=== PATIENT | female | born 2000 | race Caucasian/White ===

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

== ENCOUNTER → 2020-05-29 16:07 | Outpatient (BNVA) | payer BC, SELFPAY | PROVIDERS: Family Provider Nurse Practitioner Family; PCP Nurse Practitioner Family; Visit Provider Nurse Practitioner Family | DX: R50.9 Fever, unspecified (principal); R05 Cough; J06.9 Acute upper respiratory infection, unspecified; Z20.822 Contact with and (suspected) exposure to COVID-19 | CPT/HCPCS: 87635 ==

== ENCOUNTER 2020-11-14 10:52 | Emergency (ER) | payer BC, MEDICAID, SELFPAY ==
[2020-11-14 10:57] VITALS: BP 121/80; PULSE 61; RESP 15; TEMP 36.7; O2SAT 100; BMI 27.4
--- NOTE | 2020-11-14 11:05 | ECG_ITS ---
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 Measurements Intervals [place] Rate: 52 P: 48 VT: 170 QRS: 56 QRSD: 87 T: 49 QT: 435 QTc: 408 Interpretive Statements SINUS BRADYCARDIA WITH SINUS ARRHYTHMIA POSSIBLE RIGHT VENTRICULAR CONDUCTION DELAY [RSR (QR) IN V1/V2] No previous ECG available for comparison Electronically Signed On 11-14-2020 19:36:32 CDT by Concetta Marrero M.D. [email or web address]
[2020-11-14 11:27] VITALS: BP 108/75; PULSE 61; RESP 14; O2SAT 100
--- NOTE | 2020-11-14 11:43 | W.ED.GENADLT ---
HPI - General Adult General: Chief complaint: Syncope Stated complaint: EPIGASTIC PAIN/ SYNCOPAL EPISODE Time Seen by Provider: 11/14/20 11:03 History of Present Illness: HPI narrative: HPI: [20]yo patient w/ no PMH BIBA after an episode of syncope lasting for 30 seconds. Patient was drinking a dr pepper outside when this happened. Patient experienced sharp chest pain briefly, diaphoresis, narrowing of vision. The incident was witnessed by the patient?s friends who reported diffuse shaking x 30 minutes. Patient could not recall the incident but reported that she was slow to return baseline. Denies tongue biting or bladder/bowel incontinence. Patient denies any prior hx of syncope in the past. No prior hx of seizures in the past. No associated symptoms of chest pain, shortness of breath, palpitations or focal weakness right before the incident. No family hx of sudden cardiac or unexplained . Onset: 30 minutes ago Duration: ongoing Location: home Severity: moderate Review of Systems Narrative: Constitutional: No fever, no chills. HEENT: No vision changes CV: No chest pain, no palpitations PULM: No productive cough, no dyspnea. GI: No abdominal pain, no N/V/D. : No Dysuria MSKEL: No muscle pain SKIN: No new rashes, no lesions. NEURO: No headache, no focal weakness. +syncope x 1 episode HEME: No visible bruises PSYCH: Normal mood PFSH ED PFSH: Medical History (Updated 11/14/20 @ 11:57 by Dorothy Roman MD) Asthma Surgical History No history of previous surgery Family History Sister Hypertension Mother Hypertension Heart disease Thyroid disease Breast cancer Pt unsure of age of diagnosis Lupus (systemic lupus erythematosus) Social History Smoking and tobacco status: current every day smoker cigarettes [ Other cigarette details: 2-5 cigarrettes daily, down from 1 pack daily. Started smoking at age 14. ] Second hand smoke exposure: No Alcohol intake: never Lives independently: Yes Household members: spouse Marital status: Current occupational status: previously employed History of recent travel: No Current gender identity: Female Additional social history: Well balanced diet Physical Exam Narrative: EXAM NARRATIVE: Head: Atraumatic Eyes: PERRL, conjunctiva without injection, eyes tracking ENT: Mucous membrane moist NECK: Supple without lymphadenopathy LUNGS: LCTAB CV: RRR ABDOMEN: Soft, nontender in all quadrants, no guarding or rebound tenderness, no CVA or flank tenderness bilaterally EXTREMITY: Normal ROM SKIN: No rash or erythema NEURO: Mental status: A/Ox3 CN II-XII tested and intact. Sensation intact to sharp/dull differentiation in all extremities. Motor: Normal tone and bulk. No abnormal movements appreciated. No pronator drift. Strength tested and 5/5 in bilateral wrist flexion/extension, elbow flexion/extension, shoulder abduction, straight leg raise, knee flexion/extension, ankle dorsiflexion/plantarflexion. Patient ambulates with a steady gait. Coordination: Finger to nose and heel to burt testing intact bilaterally. PSYCH: Cooperative mood and affect Course Vital Signs: Vital signs: Vital Signs Temperature 98.0 F 11/14/20 10:57 Pulse Rate 63 11/14/20 13:08 Respiratory Rate 14 11/14/20 13:08 Blood Pressure 111/66 11/14/20 13:08 Pulse Oximetry 100 11/14/20 13:08 MDM - General Adult MDM Narrative: Medical decision making narrative: [20]yo patient w/ hx of smoking presenting to the ED with Syncope. No association with chest pain, dyspnea, palpitations, or focal neurological deficits. HDS Neuro intact. Fingerstick wnl. Given history, exam and workup, presentation not consistent with seizures given a short time course, no postictal state, no seizure activity. Low suspicion for acute neurologic catastrophes to include ICH given lack of trauma, risk factors for bleeding diathesis, or neurogenic causes of syncope. Low suspicion for vascular catastrophes to include PE, thoracic aortic dissection, AAA rupture. Presentation not consistent with acute life threatening arrhythmia, structural heart disease, electrical conduction abnormalities, or ACS. Workup: EKG, fingerstick, orthostatics, and if female, telemetry, reassessment, and PO challenge, urine Intervention: Serial reevaluation, telemetry, PO challenge Findings: troponin, dimer, and lab workup wnl. UA is consistent with UTI, but patient is clinically without symptoms -- will not treat today. EKG showing regular sinus rhythm at HT of [52]. Normal axis. No ST elevations/depressions to suggest coronary occlusion. Normal RI, QRS, QT intervals. EKG: No e/o STEMI. No evidence of Brugada?s sign, delta wave, epsilon wave, significantly prolonged QTc, HOCM or malignant arrhythmia. SF Syncope Rule: 0 Foard Syncope Risk Score: 0 [11:54] On reassessment, patient denies any syncope or near syncope episodes in the ER. Telemetry without any dysrhythmia. Patient has been able to tolerate PO and ambulate in the ER without issues. Given age, limited to no comorbidities, no family hx of SCD, history more consistent with situational/reflex syncope vs orthostatic/decreased fluid intake, patient is unlikely to experience sudden cardiac decompensation at this time and will NOT benefit from inpatient observation/telemetry at this time. Although the incidence of paroxysmal ventricular tachycardia/VF is very unlikely, I instructed the patient to follow up with a PCP for further evaluation of syncope should the patient need it. Although this is unlikely to be a seizure epsiode, patient reported some confusion before returning to baseline. If patient is concerned that this is a seizure, I have given patient follow up with a neurologist. I have given patient follow up with our case investigator to be seen by our outpatient Neurologist Dr. Suarez. Patient aware of a call from our case investigator to schedule for appointment(s) and verbalizes understanding of the importance of following up. Disposition: Discharge. Patient is at baseline at this time. Return precautions expressed and understood in person. Advised follow up with a primary care provider or clinic physician in the next 24-48 hours. Given return instructions for any new or concerning symptoms including chest pain, focal neurological deficits, dyspnea, or any new or concerning findings. Lab Data: Labs: Lab Results 11/14/20 11/14/20 11/14/20 11:25 11:25 11:25 WBC 7.4 10^3/uL 10^3/ uL (4.5-13.0) RBC 4.32 10^6/uL 10^6 /uL (4.1-5.3) Hgb 13.0 g/dL g/dL (11.5-15.3) Hct 39.1 % % (37.0-47.0) MCV 90.5 fl fl (81-99) MCH 30.1 pg pg (28.0-34.0) MCHC 33.2 g/dL g/dL (30.0-36.0) RDW 11.9 % L % (12.1-15.1) Plt Count 234 10^3/cmm 10^3 /cmm (130-400) MPV 10.2 fL fL (7.4-10.4) Neut % (Auto) 48.8 % % Lymph % (Auto) 36.5 % % [place] % (Auto) 6.9 % % Eos % (Auto) 6.8 % % Baso % (Auto) 0.7 % % Neut # (Auto) 3.62 10^3/uL 10^3 /uL (1.8-8.0) Lymph # (Auto) 2.7 10^3/uL 10^3/ uL (1.5-6.5) [place] # (Auto) 0.5 10^3/uL 10^3/ uL (0.2-0.9) Eos # (Auto) 0.5 10^3/uL 10^3/ uL (0.0-0.8) Baso # (Auto) 0.1 10^3/uL 10^3/ uL (0.0-0.1) Nucleated RBC % (a uto) 0 % % Nucleated RBCs # 0.0 /100WBC /100W BC D-Dimer Sodium 138 mmol/L mmol/L (136-145) Potassium 4.0 mmol/L mmol/L (3.5-5.1) Chloride 105 mmol/L mmol/L (98-107) Carbon Dioxide 23 mmol/L mmol/L (22-29) Anion Gap 14.0 (5-19) BUN 15 mg/dL mg/dL (6-20) Creatinine 0.4 mg/dL L mg/dL (0.5-0.9) GFR Calculation 203.5 mL/min H mL /min (90-130) Glucose 81 mg/dL mg/dL (65-115) Calculated Osmolal ity 286 mOsm/kg mOsm/ kg (285-295) Calcium 9.1 mg/dL mg/dL (8.5-10.5) Total Bilirubin 0.4 mg/dL mg/dL (0.15-1.2) AST 12 U/L U/L (0-32) ALT 7 U/L U/L (0-33) Alkaline Phosphata se 77 IU/L IU/L (35-105) Troponin T Gen 5 n g/L 6 ng/L ng/L (0-10) Total Protein 7.2 g/dL g/dL (6.6-8.7) Albumin 4.4 g/dL g/dL (3.5-5.2) Globulin 2.8 g/dL g/dL (1.3-4.6) Lipase 13 U/L U/L (13-60) Ser , Tad i-Qnt 0.50 mIU/mL mIU/m L Urine Color Urine Appearance Urine pH Ur Specific Gravit y Urine Protein Urine Glucose (UA) Urine Ketones Urine Blood Urine Nitrate Urine Bilirubin Urine Urobilinogen Ur Leukocyte Cherelle ase Urine RBC Urine WBC Ur Squamous Epith Cells Amorphous Sediment Urine Bacteria 11/14/20 11/14/20 11:48 12:32 WBC RBC Hgb Hct MCV MCH MCHC RDW Plt Count MPV Neut % (Auto) Lymph % (Auto) [place] % (Auto) Eos % (Auto) Baso % (Auto) Neut # (Auto) Lymph # (Auto) [place] # (Auto) Eos # (Auto) Baso # (Auto) Nucleated RBC % (a uto) Nucleated RBCs # D-Dimer 0.39 ug/mIFEU ug/ mIFEU (0-0.59) Sodium Potassium Chloride Carbon Dioxide Anion Gap BUN Creatinine GFR Calculation Glucose Calculated Osmolal ity Calcium Total Bilirubin AST ALT Alkaline Phosphata se Troponin T Gen 5 n g/L Total Protein Albumin Globulin Lipase Ser , Tad i-Qnt Urine Color Yellow (Yellow) Urine Appearance Cloudy (CLEAR) Urine pH 5 (5-7) Ur Specific Gravit y 1.025 (1.005-1.030) Urine Protein Neg (Negative) Urine Glucose (UA) Norm (Normal) Urine Ketones Negative (Negative) Urine Blood 3+ H (Negative) Urine Nitrate Positive H (Negative) Urine Bilirubin Neg (Negative) Urine Urobilinogen Norm mg/dL mg/dL (Negative) Ur Leukocyte Cherelle ase 2+ H (Negative) Urine RBC 5-10 /hpf H /hpf (0-2) Urine WBC >100 /hpf H /hpf (0-5) Ur Squamous Epith Cells 0-4 /hpf H /hpf (0-5) Amorphous Sediment Not Reportable Urine Bacteria 4+ /hpf H /hpf (NONE) Discharge Plan Discharge Patient Disposition: Home Clinical Impression: Syncope Condition: Stable Prescriptions: No Action albuterol sulfate [ProAir HFA] 90 mcg/actuation HFA aerosol inhaler 2 puff INHALATION QID Qty: 18 RF: 0 Mirena 20 mcg/24 hours (5 yrs) 52 mg intrauterine device 1 device INTRAUTERI .continuous RF: 0 Discharge Orders: Discharge ED (Routine); Ordered 11/14/20 Ordered By: Dorothy Roman Referrals: Lolita Sheffield FNP [Primary Care Provider] - Discharge Diet: Advance as tolerated Discharge Activity: Resume usual activity Patient Instructions: Syncope (ED) Activity Restrictions/Additional Instructions: Our case investigator will have you follow-up with a Neurologist in the next few days to determine whether this ia seizure epside. You would be expected to have a phone call with our case investigator who will put you on the schedule. Come back to the emergency room you have any worsening chest pain, shortness of breath, lightheadedness, and other episodes of passing out. Do not operate a vehicle, swim, or bath by yourself unless cleared by a primary care doctor just for your safety. Coding Level of Care Code ED Quality Control Operator for [place]
[2020-11-14 11:50] LABS: Basophils # 0.1 10^3/uL (0.0-0.1); Basophils % 0.7 %; Eosinophils # 0.5 10^3/uL (0.0-0.8); Eosinophils % 6.8 %; Hematocrit 39.1 % (37.0-47.0); Lymphocytes # 2.7 10^3/uL (1.5-6.5); Lymphocytes % 36.5 %; Mean Corpuscular HGB Conc 33.2 g/dL (30.0-36.0); Mean Corpuscular Hemoglobin 30.1 pg (28.0-34.0); Mean Corpuscular Volume 90.5 fl (81-99); Mean Platelet Volume 10.2 fL (7.4-10.4); Monocytes # 0.5 10^3/uL (0.2-0.9); Monocytes % 6.9 %; Neutrophils # 3.62 10^3/uL (1.8-8.0); Neutrophils % 48.8 %; Nucleated Red Blood Cells % 0 %; Platelet Count 234 10^3/cmm (130-400); Red Blood Count 4.32 10^6/uL (4.1-5.3); Red Cell Distribution Width 11.9 % (12.1-15.1); White Blood Count 7.4 10^3/uL (4.5-13.0)
[2020-11-14 12:10] LABS: Troponin T (5th) Once 6 ng/L (0-10)
[2020-11-14] MEDS: sodium chloride 0.9% 1,000 ML 999 ML IV (12:13)
[2020-11-14 12:17] LABS: Alanine Aminotransferase 7 U/L (0-33); Albumin Level 4.4 g/dL (3.5-5.2); Alkaline Phosphatase 77 IU/L (35-105); Aspartate Amino Transferase 12 U/L (0-32); Blood Urea Nitrogen 15 mg/dL (6-20); Calcium 9.1 mg/dL (8.5-10.5); Carbon Dioxide 23 mmol/L (22-29); Chloride 105 mmol/L (98-107); Globulin 2.8 g/dL (1.3-4.6); Glomerular Filtration Rate 203.5 mL/min (90-130); Glucose 81 mg/dL (65-115); Lipase 13 U/L (13-60); Osmolality Calculated 286 mOsm/kg (285-295); Sodium 138 mmol/L (136-145); Total Bilirubin 0.4 mg/dL (0.15-1.2); Total Protein 7.2 g/dL (6.6-8.7)
--- NOTE | 2020-11-14 12:21 | PC.NURSE ---
Cardiac monitoring initiated
[2020-11-14 12:33] LABS: Urine Appearance Cloudy (CLEAR); Urine Color Yellow (Yellow)
[2020-11-14 12:34] LABS: Add Urine Microscopic? YES; Bilirubin Urine Neg (Negative); Blood Urine 3+ (Negative); Glucose Urine UA Norm (Normal); Ketones Urine Negative (Negative); Leukocyte Esterase Urine 2+ (Negative); Nitrate Urine Positive (Negative); Protein Urine Neg (Negative); Specific Gravity, Urine 1.025 (1.005-1.030); Urobilinogen Urine Norm (Negative); pH Urine 5 (5-7)
[2020-11-14 12:40] LABS: Add Urine Culture? Yes; Bacteria Urine 4+ /hpf; Squamous Epithelial Cell Urine 0-4 /hpf (0-5); WBC Urine >100 /hpf (0-5)
[2020-11-14 12:51] LABS: D Dimer 0.39 ug/mIFEU (0-0.59)
[2020-11-14 13:08] VITALS: BP 111/66; PULSE 63; RESP 14; O2SAT 100
--- NOTE | 2020-11-14 15:06 | DCPLANNER ---
livestock nutrition territory manager had message to schedule a follow up appointment for patient with Dr. Suarez. livestock nutrition territory manager emailed patients information to the office of Dr. Anglin. livestock nutrition territory manager was told that patients information would be printed and reviewed. Clinic will call patient with appointment information.
--- NOTE | 2020-11-27 15:30 | DCPLANNER ---
Patient had a follow up appointment scheduled for 11.21.[address] Suarez - patient did attend appointment.
== END 2020-11-14 13:10 | disposition home or self-care (01) ==
PROVIDERS: Emergency Provider Emergency Medicine; PCP Nurse Practitioner Family
DX: R55 Syncope and collapse (principal); F17.210 Nicotine dependence, cigarettes, uncomplicated
CPT/HCPCS: 36415; 80053; 81001; 83690; 84484; 84702; 85025; 85378; 87077; 87086; 87186; 93005; 96360; 99283; J7030

== ENCOUNTER → 2020-11-21 14:25 | Outpatient (BNVA) | payer BC, MEDICAID, SELFPAY | PROVIDERS: PCP Nurse Practitioner Family; Visit Provider Nurse Practitioner | DX: R55 Syncope and collapse (principal); F17.210 Nicotine dependence, cigarettes, uncomplicated | CPT/HCPCS: 99203 ==

== ENCOUNTER → 2021-04-10 13:41 | Outpatient (BNVA) | payer BC, MEDICAID, SELFPAY | PROVIDERS: PCP Nurse Practitioner Family; Visit Provider Nurse Practitioner Family | DX: M25.561 Pain in right knee (principal); M25.461 Effusion, right knee | CPT/HCPCS: 73562 ==

== ENCOUNTER 2021-05-27 07:16 | Outpatient (CLI) | payer BC, MEDICAID, SELFPAY ==
--- NOTE | 2021-05-27 08:00 | MR_ITS ---
WS: [id number] MRI RIGHT KNEE HISTORY: M25.561 - Pain in right knee COMPARISON: Radiograph 04/10/2021 Anterior cruciate ligament: Increased T2 striations throughout the ACL. No full-thickness tear identi fied. Posterior cruciate ligament: Intact. Medial collateral ligament: Intact. Posterior lateral corner structures: Intact. Medial menisci: Intact. Normal signal, size and shape. Lateral meniscus: Intact. Normal signal, size and shape. Extensor mechanism: Distal quadriceps tendon and patellar tendons are intact. Fluid and soft tissue: There is a very small joint effusion. No Valentino's cyst. Osseous and articular structures: Patellofemoral compartment: There is a small amount of marrow edema involving the medial patella. At the site of the medial patellar retinaculum attachment to the patella there is increased T2 signal an d loss of the normal bony cortex consistent with a small impaction type fracture. There is also incre ased fluid in the patellar retinaculum. Medial compartment: Fissuring of the cartilage along the weightbearing surface of the femoral condyle and tibial plateau. There is a full thickness cartilage defect containing fluid signal along the med ial femoral condyle towards the intercondylar notch. This is a very short cartilage defect measuring about 3 mm. No marrow edema. Lateral compartment: No narrowing of the lateral compartment. The cartilage is intact. There is incre ased T2 signal consistent with marrow edema involving the lateral femoral condyle. No fracture. MR/MR knee RT wo con* [id number] IMPRESSION: 1. Pattern of marrow edema in the medial patella and lateral femoral condyle s uggests transient dislocation of the patella. 2. There is a partial tear of the medial patellar retinaculum as it attaches t o the patella along with a small cortical impaction fracture involving the portillo lla. 3. No meniscal tear. 4. Very small suprapatellar joint effusion. 5. Mild chondromalacia involving the cartilage in the medial compartment with a single 3 mm full-thickness tear in the medial femoral condyle.
== END 2021-05-27 07:17 | disposition home or self-care (01) ==
LOC: RAD 07:18
PROVIDERS: PCP Nurse Practitioner Family; Visit Provider Nurse Practitioner Family
DX: R60.0 Localized edema (principal); M25.461 Effusion, right knee; M22.41 Chondromalacia patellae, right knee
CPT/HCPCS: 73721

== ENCOUNTER → 2022-01-22 12:54 | Outpatient (BNVA) | payer BC, MEDICAID, SELFPAY | PROVIDERS: PCP Nurse Practitioner Family; Visit Provider Nurse Practitioner Family | DX: R50.9 Fever, unspecified (principal) | CPT/HCPCS: 87071; 87400; 87880 ==

== ENCOUNTER → 2022-10-14 09:42 | Outpatient (BNVA) | payer MEDICAID, SELFPAY | PROVIDERS: PCP Nurse Practitioner Family; Visit Provider Nurse Practitioner Women's Health | DX: Z34.90 Encounter for supervision of normal pregnancy, unspecified, unspecified trimester (principal) | CPT/HCPCS: 81000 ==

== ENCOUNTER → 2022-10-21 14:29 | Outpatient (BNVA) | payer MEDICAID, SELFPAY | PROVIDERS: PCP Nurse Practitioner Family; Visit Provider Nurse Practitioner Women's Health | DX: O20.9 Hemorrhage in early pregnancy, unspecified (principal); Z3A.01 Less than 8 weeks gestation of pregnancy | CPT/HCPCS: 76817 ==

== ENCOUNTER → 2022-10-27 09:53 | Outpatient (BNVA) | payer SELFPAY | PROVIDERS: PCP Nurse Practitioner Family; Visit Provider Obstetrics & Gynecology | DX: Z34.90 Encounter for supervision of normal pregnancy, unspecified, unspecified trimester (principal) | CPT/HCPCS: 81000 ==

== ENCOUNTER → 2023-01-03 09:00 | Outpatient (BNVA) | payer BC, MEDICAID, SELFPAY | PROVIDERS: PCP Nurse Practitioner Family; Visit Provider Nurse Practitioner Women's Health | DX: Z34.80 Encounter for supervision of other normal pregnancy, unspecified trimester (principal); Z34.90 Encounter for supervision of normal pregnancy, unspecified, unspecified trimester | CPT/HCPCS: 80307; 81000; 84443; 85025; 86592; 86762; 86803; 86850; 86900; 87086; 87340; 87491; 87591; 87806 ==

== ENCOUNTER → 2023-02-01 09:08 | Outpatient (BNVA) | payer BC, MEDICAID, SELFPAY | PROVIDERS: PCP Nurse Practitioner Family; Visit Provider Obstetrics & Gynecology | DX: Z34.80 Encounter for supervision of other normal pregnancy, unspecified trimester (principal) | CPT/HCPCS: 76805; 81000 ==

== ENCOUNTER → 2023-03-02 11:17 | Outpatient (BNVA) | payer BC, MEDICAID, SELFPAY | PROVIDERS: PCP Nurse Practitioner Family; Visit Provider Nurse Practitioner Women's Health | DX: Z34.90 Encounter for supervision of normal pregnancy, unspecified, unspecified trimester (principal) | CPT/HCPCS: 81000 ==

== ENCOUNTER → 2023-03-28 10:04 | Outpatient (BNVA) | payer BC, MEDICAID, SELFPAY | PROVIDERS: PCP Nurse Practitioner Family; Visit Provider Obstetrics & Gynecology | DX: Z34.80 Encounter for supervision of other normal pregnancy, unspecified trimester (principal) | CPT/HCPCS: 82950; 84315 ==

== ENCOUNTER → 2023-04-14 10:58 | Outpatient (BNVA) | payer BC, MEDICAID, SELFPAY | PROVIDERS: PCP Nurse Practitioner Family; Visit Provider Obstetrics & Gynecology | DX: Z34.80 Encounter for supervision of other normal pregnancy, unspecified trimester (principal) | CPT/HCPCS: 76816 ==

== ENCOUNTER 2023-04-20 17:26 | Outpatient (CLI) | payer BC, MEDICAID, SELFPAY ==
[2023-04-20] VITALS (11 sets, daily range): BP systolic 105–129; BP diastolic 57–77; PULSE 80–110; RESP 17; BMI 33.3
--- NOTE | 2023-04-20 17:57 | USR_ITS ---
PROCEDURE INFORMATION: Exam: US Biophysical Profile Without Non-Stress Test Exam date and time: 04/20/2023 7:17 PM Age: 23 years old Clinical indication: Other: Vaginal bleeding, check placment of placenta/ abrubition; ; Patient HX: G3-p2-a0-l2 with light spotting x 1 hr. TECHNIQUE: Imaging protocol: US biophysical profile without non-stress testing. COMPARISON: [place] [id number] 04/14/2023 11:03 AM FINDINGS: heart rate: 155 bpm presentation: Cephalic Placenta: Posterior grade 1 placenta without previa. Amniotic fluid: Amniotic fluid volume is normal. Amniotic fluid index: TANA is 14.91 cm. BIOPHYSICAL PROFILE: breathing movement (BPP): 2 /2 body movement (BPP): 2 /2 tone (BPP): 2 /2 Amniotic fluid (BPP): 2 /2 Biophysical profile score (BPP): 8 /8 MATERNAL ANATOMY: Cervix: Cervical length measures 3.5 cm. US/US OB BPP wo NST [id number] IMPRESSION: Biophysical profile score normal at 8/8.
[2023-04-20] MEDS: NIFEdipine 10 mg Capsule 30 MG PO (18:18)
[2023-04-20 19:21] LABS: Specific Gravity, Urine 1.015 (1.005-1.030); Urine Appearance Clear (CLEAR); Urine Color Yellow (Yellow); pH Urine 6.5 (5-7)
[2023-04-20 19:22] LABS: Bilirubin Urine Neg (Negative); Blood Urine 3+ (Negative); Glucose Urine UA Norm (Normal); Ketones Urine Negative (Negative); Leukocyte Esterase Urine Negative (Negative); Nitrate Urine Negative (Negative); Protein Urine Neg (Negative); Urobilinogen Urine Norm (Negative)
[2023-04-20 19:30] LABS: Add Urine Culture? No; Bacteria Urine TRACE /hpf; RBC Urine 0-4 /hpf (0-2); Squamous Epithelial Cell Urine 0-4 /hpf (0-5); WBC Urine 0-4 /hpf (0-5)
== END 2023-04-20 20:42 | disposition home or self-care (01) ==
LOC: OPOB 17:26 → OBGYN 17:32
PROVIDERS: PCP Nurse Practitioner Family; Visit Provider Obstetrics & Gynecology
DX: O46.90 Antepartum hemorrhage, unspecified, unspecified trimester (principal); Z3A.00 Weeks of gestation of pregnancy not specified; R10.9 Unspecified abdominal pain
CPT/HCPCS: 59025; 76819; 81001; 99211

== ENCOUNTER → 2023-04-25 15:42 | Outpatient (BNVA) | payer BC, MEDICAID, SELFPAY | PROVIDERS: PCP Nurse Practitioner Family; Visit Provider Obstetrics & Gynecology | DX: Z34.90 Encounter for supervision of normal pregnancy, unspecified, unspecified trimester (principal) | CPT/HCPCS: 81000 ==

== ENCOUNTER 2023-05-02 15:55 | Outpatient (CLI) | payer BC, MEDICAID, SELFPAY ==
[2023-05-02 15:55] VITALS: BMI 35.0
[2023-05-02 16:17] VITALS: BP 118/61; PULSE 90
[2023-05-02 16:22] VITALS: RESP 16
[2023-05-02 16:37] VITALS: BP 111/56; PULSE 86
== END 2023-05-02 16:41 | disposition home or self-care (01) ==
LOC: OPOB 15:59 → OBGYN 16:04
PROVIDERS: PCP Nurse Practitioner Family; Visit Provider Obstetrics & Gynecology
DX: O46.90 Antepartum hemorrhage, unspecified, unspecified trimester (principal); Z3A.00 Weeks of gestation of pregnancy not specified
CPT/HCPCS: 59025; 84315

== ENCOUNTER → 2023-05-23 11:30 | Outpatient (BNVA) | payer BC, MEDICAID, SELFPAY | PROVIDERS: PCP Nurse Practitioner Family; Visit Provider Obstetrics & Gynecology | DX: Z34.80 Encounter for supervision of other normal pregnancy, unspecified trimester (principal) | CPT/HCPCS: 84315; 87081 ==

== ENCOUNTER 2023-06-05 14:03 | Outpatient (CLI) | payer BC, MEDICAID, SELFPAY ==
[2023-06-05 14:21] VITALS: BP 129/76; PULSE 92
[2023-06-05 14:25] VITALS: BMI 36.8
[2023-06-05 14:30] LABS: Nitrazine Paper, PH Inconclusive
[2023-06-05 14:36] VITALS: BP 116/68; PULSE 92
[2023-06-05 14:36] LABS: Actim Prom Negative
[2023-06-05 15:18] VITALS: BP 116/68; PULSE 92
== END 2023-06-05 15:00 | disposition home or self-care (01) ==
LOC: OPOB 14:04 → OBGYN 14:05
PROVIDERS: PCP Nurse Practitioner Family; Visit Provider Obstetrics & Gynecology
DX: O26.899 Other specified pregnancy related conditions, unspecified trimester (principal); Z3A.00 Weeks of gestation of pregnancy not specified; R10.9 Unspecified abdominal pain
CPT/HCPCS: 59025; 83986; 84112; 99211

== ENCOUNTER 2023-06-13 19:28 | Inpatient (IN) | payer BC, MEDICAID, SELFPAY ==
[2023-06-13 19:30] VITALS: BMI 36.6
[2023-06-13 20:13] VITALS: BP 116/67; PULSE 80
[2023-06-13 20:35] VITALS: RESP 17
[2023-06-13 20:46] VITALS: BP 115/72; PULSE 74
--- NOTE | 2023-06-13 20:50 | PM.OBGYHP ---
Providers/Chief Complaint Admitting Physician: Jarad Ceja MD Primary GREEN FEED ATTENDANT: Jarad Ceja MD Primary Care Provider: MARICEL Baer Chief Complaint: INDUCTION OF LABOR HPI GREEN FEED ATTENDANT History of Present Illness 23 y.o EDC ? June 18, 2023 by 5-week sono At 39 w 2 d No complications Admitted for elective induction of labor Present Details : 4 Labs Rubella: Immune RPR: Negative GBS: Negative Specific History Indications for Section: Placental Abruption Medications/Allergies Home Medications Medication Instructions Recorded Confirmed Last Taken Type PNV 153-FA 400 mcg-om3 35 mg-dha 1 tab PO DAILY 11/10/22 06/13/23 06/12/23 History 25 mg-epa 5 mg-fish oil chew tablet ( Gummies) Allergies Allergy/AdvReac Type Severity Reaction Status Date / Time No Known Allergies Allergy Verified 06/13/23 20:35 PFSH GREEN FEED ATTENDANT PFSH: Medical History (Updated 06/14/23 @ 10:49 by Jarad Ceja MD) Asthma Surgical History No history of previous surgery Family History Sister Hypertension Mother Hypertension Heart disease Thyroid disease Breast cancer Pt unsure of age of diagnosis Lupus (systemic lupus erythematosus) Other Female Reproductive History: Hx Age of Menarche: 11 History History History 3 Term 2 0 Miscarriages/Ectopic 0 Living Children 2 Care CAREY Calculator Estimated Delivery Date Method Current WG Current Estimate 06/18/23 Ultrasound #1 39w 3d Vitals/I&O/Wt Last Vital Signs Pulse 74 06/14/23 10:40 Resp 16 06/14/23 10:20 BP 113/58 06/14/23 10:40 Pulse Ox 100 06/14/23 05:59 O2 Del Method Room Air 06/13/23 20:35 06/13/23 06/14/23 06/14/23 22:59 06:59 14:59 Intake Total 20.5 / 20.5 Output Total 500 / 500 Balance -479.5 / -479.5 Weight last 48 hrs Weight 207 lb Weight 207 lb Physical Exam Narrative: [id number]? lbs;? 5?4? VSnormal Comfortable Lungs:clear Cor:RRR Abd:nontender FH37 cm,? cephalic Cervix:1 cm / 50% / -2 / posterior Ext:no edema External monitor: heart tracing good variability, + accelerations Urinary Catheter Management: Ken Latex: Cath Placed During This Visit: yes Urinary Catheter Date of Insertion: 06/14/23 Urinary Catheter Time of Insertion: 04:51 Data 06/13/23 20:16 Results Labs OB ([facility]): Obstetrics US 04/14/23 Obstetrics US/Biophysical Profile 04/20/23 Blood Type A Positive 06/13/23 Antibody Screen Negative 06/13/23 Hct 35.4 % (36-47) L 06/13/23 Hgb 12.30 g/dL (11.27-16.99) 06/13/23 Rho(D) Type Rh positive 06/13/23 Plt Count 252 10^3/cmm (157-399) 06/13/23 Hep Bs Antigen Non-reactive (Nonreactive) 01/03/23 Hepatitis C Antibody Non-reactive (Nonreactive) 01/03/23 Rubella IgG Antibody 173.8 IU/mL (0.0-10.0) H 01/03/23 RPR Nonreactive (Nonreactive) 01/03/23 HIV 1&2 Ab & HIV 1 Ag Non-reactive (Non-Reactiv) 01/03/23 TSH 1.21 uIU/mL (0.27-4.20) 01/03/23 C.trachomatis RNA (TMA) Not detected (NOT DETECTED) 01/03/23 N.gonorrhoeae RNA (TMA) Not detected (NOT DETECTED) 01/03/23 Chlamydia/GC Comment See note 01/03/23 Gest Glucose Tolerance 73 mg/dL (70-139) 03/28/23 Ser , Semi-Qnt 0.50 mIU/mL 11/14/20 Urine Opiates Screen Negative ng/mL (Negative) 01/03/23 Ur Barbiturates Screen Negative ng/mL (Negative) 01/03/23 Ur Phencyclidine Scrn Negative ng/mL (Negative) 01/03/23 Ur Amphetamines Screen Negative ng/mL (Negative) 01/03/23 U Benzodiazepines Scrn Negative ng/mL (Negative) 01/03/23 Urine Cocaine Screen Negative ng/mL (Negative) 01/03/23 U Marijuana (THC) Screen Negative ng/mL (Negative) 01/03/23 Micro Urine Specimen 01/03/23 A&P Assessment and plan (1) Encounter for induction of labor: 39 w 2 d Fetus reassuring Admitted for induction of labor Plan Cytotec 25 ug intravaginal Attestations Medical Necessity Statement*: patient at 39 w 1 d, admitted for induction of labor Coding Level of Care Code Acute Code for Chg Fwd Diagnoses Encounter for induction of labor Z34.90 Time Spent (min) 30
[2023-06-13 21:02] LABS: Basophils # 0.1 10^3/uL (0.0-0.1); Basophils % 0.7 %; Eosinophils # 0.3 10^3/uL (0.0-0.8); Hematocrit 35.4 % (36-47); Lymphocytes # 3.4 10^3/uL (0.8-4.8); Lymphocytes % 25.1 %; Mean Corpuscular HGB Conc 34.7 g/dL (30-55); Mean Corpuscular Hemoglobin 30.8 pg (27-33); Mean Corpuscular Volume 88.5 fl (85-98); Mean Platelet Volume 9.9 fL (7.4-10.4); Monocytes # 0.7 10^3/uL (0.2-0.9); Monocytes % 5.5 %; Neutrophils # 8.77 10^3/uL (1.8-7.7); Neutrophils % 65.4 %; Nucleated Red Blood Cells % 0 %; Platelet Count 252 10^3/cmm (157-399); Red Cell Distribution Width 12.3 % (12.1-15.1); White Blood Count 13.39 10^3/uL (3.29-11.43)
[2023-06-13 21:14] VITALS: BP 121/66; PULSE 75
[2023-06-13 21:44] VITALS: BP 105/60; PULSE 76
[2023-06-13] MEDS: miSOPROStol 100 mcg tablet 25 MCG VAGINAL (21:56)
[2023-06-13 22:14] VITALS: BP 124/61; PULSE 82
[2023-06-14] VITALS (99 sets, daily range): BP systolic 91–137; BP diastolic 47–84; PULSE 62–129; RESP 16–17; TEMP 35.7–36.5; O2SAT 95–100; BMI 36.6
[2023-06-14] MEDS: oxytocin 30 UNIT/500 ML BAG IV (02:51)
[2023-06-14] MEDS: dextrose 5%-lactated ringers 1,000 ML 125 ML IV ×2 (02:51→11:15)
[2023-06-14] MEDS: lactated ringers 1,000 ML 999 ML IV ×2 (02:58→06:26)
[2023-06-14] MEDS: ROPivacaine syringe 100 MG/50 ML SYRINGE 10 MG EPIDURAL (04:22)
--- NOTE | 2023-06-14 04:25 | P.ANESASSM_ITS ---
Pre-Anesthetic Assessment Height/Weight: Height 1.6 m Weight 93.894 kg Pulse Resp BP Pulse Ox O2 Del Method 72 17 115/63 100 Room Air 06/14/23 04:22 06/13/23 20:35 06/14/23 04:22 06/14/23 04:19 06/13/23 20:35 Preop Diagnosis: IUP Labor Epidural Familial anesthetic complications: None Was Beta Glenna taken within 24 hours: N/A Was Clonidine taken within 24 hours: N/A Last intake: 0000 06/14/23 MEAL CLEARS- CURRENT Social Tobacco and No alcohol Exam alert, oriented x 3 and clear to auscultation bilaterally Airway Submandibular: within normal limits Cervical ROM: within normal limits Mallampati: Class II Dentition: full History/ROS No significant history except as noted Pulmonary Asthma (denies inhaler use) CV/HEM None reported None reported Hepatic None reported GI Gastroesophageal Reflux Disease Metabolic None reported Musc/skel None reported Neuropsych None reported Anesthetic Plan ASA status: 2 Anesthesia: Regional (specify below) Other: Labor Epidural Medications/Allergies Home Medications Medication Instructions Recorded Confirmed Last Taken Type PNV 153-FA 400 mcg-om3 35 mg-dha 1 tab PO DAILY 11/10/22 06/13/23 06/12/23 History 25 mg-epa 5 mg-fish oil chew tablet ( Gummies) Allergies Allergy/AdvReac Type Severity Reaction Status Date / Time No Known Allergies Allergy Verified 06/13/23 20:35 Current Medications Generic Name Dose Route Start Last Admin Trade Name Freq PRN Reason Stop Dose Admin Dextrose/Lactated Ringer's 1,000 mls @ 125 mls/hr 06/13/23 20:45 06/14/23 02:51 Dextrose 5%-Lactated Ringers IV 125 mls/hr .Q8H JATIN Administration Oxytocin 30 unit in 500 mls @ 1 mls/hr 06/14/23 02:15 06/14/23 03:21 Pitocin IV 0 milliunit/min .Q24H JATIN 0 mls/hr Titration Protocol 1 MILLIUNIT/MIN Lactated Ringer's 1,000 mls @ 999 mls/hr 06/14/23 02:53 06/14/23 02:58 Lactated Ringers IV 999 mls/hr .Q1H1M PRN Administration See label comments Ropivacaine 100 mg in 50 mls @ 10 mls/hr 06/14/23 03:00 06/14/23 04:22 Naropin Syringe EPIDURAL 10 mls/hr .Q5H JATIN Administration PFSH Anesthesia Medical History Asthma Surgical History No history of previous surgery Family History Sister Hypertension Mother Hypertension Heart disease Thyroid disease Breast cancer Pt unsure of age of diagnosis Lupus (systemic lupus erythematosus) Female Reproductive History : 4 Data Anesthesia 06/13/23 20:16 Short CBC 06/13/23 Range/Units 20:16 WBC 13.39 H (3.29-11.43) 10^3/uL Hgb 12.30 (11.27-16.99) g/dL Hct 35.4 L (36-47) % MCV 88.5 (85-98) fl Plt Count 252 (157-399) 10^3/cmm Neut % (Auto) 65.4 % Neut # (Auto) 8.77 H (1.8-7.7) 10^3/uL Blood Bank 06/13/23 20:16 Blood Type A Positive Rho(D) Type Rh positive Antibody Screen Negative Cardiac Studies: 2 No Data to Display Anesthesia Procedures Epidural Time Out Performed: Yes Consents Signed: Procedure Consent Consent: from patient, risks and benefits reviewed and patient agrees to proceed Lumbar Level: L3-L4 Epidural position: sitting Epidural procedure: sterile prep of area, 1% lidocaine to numb the area, negative for paresthesia passed, test dose given, 1.5% xylocaine 1:200k epi, placed PCEA, no systemic response, sterile dressing applied, L.U.D. no apparent complications and 0.2% Ropiavacaine @ mls/hr (10) Additional Comments: First attempt at L4-5 resulted in a CSF leak, needle removed and [employer] proceededto L3/4 JERROD @ 5.5cm , second attempt, - heme -csf. catheter threaded to 12cm with ease. Adequate analgesia achieved. Remaining Lidocaine and Saline in kit given.
--- NOTE | 2023-06-14 05:35 | PM.OBGYPN ---
NEUROPSYCHOLOGY DIVISION CHIEF Subjective Subjective: Interval history: heart tracing had inconsistent variable and late variable decelerations Cx:5 cm / 90 % / -2 / posterior Patient had spontaneous rupture of membranes IUPC and FSE placed Now with moderately heavy bright red vaginal bleeding with clots + repetitive late decelerations Cx remains at 5 cm Suspect placental abruption Will proceed with for delivery Procedure and risks explained to patient, including, but not limited to, infection;? bleeding; Injury to internal organs, such as bladder and bowel;? anesthesia;? blood Transfusions Patient understands and wants to proceed Labor: Station: -3 Amniotic Membrane Status: Ruptured Monitor Mode: External Contraction Pattern: Irregular Vitals/I&O/Wt Last Vital Signs Pulse 74 06/14/23 10:40 Resp 16 06/14/23 10:20 BP 113/58 06/14/23 10:40 Pulse Ox 100 06/14/23 05:59 O2 Del Method Room Air 06/13/23 20:35 06/13/23 06/14/23 06/14/23 22:59 06:59 14:59 Intake Total 20.5 / 20.5 Output Total 500 / 500 Balance -479.5 / -479.5 Weight last 48 hrs Weight 207 lb Weight 207 lb Physical Exam Urinary Catheter Management: Ken Latex: Cath Placed During This Visit: yes Urinary Catheter Date of Insertion: 06/14/23 Urinary Catheter Time of Insertion: 04:51 Data 06/13/23 20:16 A&P Assessment and plan (1) Encounter for induction of labor: see above note Attestations Medical Necessity Statement*: patient admitted for induction of labor, now with repetitive decelerations Coding Level of Care Code Acute Code for Chg Fwd Diagnoses Encounter for induction of labor Z34.90 Time Spent (min) 30
[2023-06-14] MEDS: famotidine 20 mg/2 mL INJ IVP (06:20)
[2023-06-14] MEDS: ceFAZolin 2,000 MG in sodium chloride 0.9% (plus) 50 ML 100 MG IV (06:32)
--- NOTE | 2023-06-14 07:55 | PM.OP ---
Operative Report Date of procedure: June 14, 2023 Pre-op diagnosis: 39 w 1 d induction of labor cervix at 5 cm heart tracing with repetitive late decelerations moderately heavy vaginal bleeding with clots Post-op diagnosis: 39 w 1 d induction of labor cervix at 5 cm heart tracing with repetitive late decelerations moderately heavy vaginal bleeding with clots placental abruption, approximately 30% fetus with tight nuchal cord x two Post-op findings: clear amniotic fluid placental abruption, approximately 30% fetus with tight nuchal cord x two normal uterus, tubes, and ovaries Procedure done: primary low-transverse Implants: none Specimens removed/disposition: placenta and cord, discarded cord gases and blood, sent to lab Surgeon: Jarad Ceja MD Anesthesia: Epidural Estimated blood loss (mL): 700 Complications: none Condition: stable Disposition: floor Brief History: 23 y.o.? At 39 w 1d admitted for induction of labor Cx at 5? cm heart tracing with repetitive late decelerations moderately heavy vaginal bleeding with clots Procedure: The patient was taken to the operating room and placed supine in the left lateral tilt position.? Epidural anesthesia and a mckeon catheter were already in place.? Time-out verification was carried out.? The abdomen was prepped and draped in the usual sterile fashion. A Pfannenstiel incision was made and carried down through skin and subcutaneous tissue and fascia.? The fascial incision was extended laterally with Mackenzie scissors.? The fascia was from the underlying rectus muscles.? The rectus muscles were split in the midline.? The peritoneum was entered bluntly avoiding underlying organs.? A bladder flap was created.? An Ilir-O retractor was placed. A low-transverse uterine incision was made and extended laterally and bluntly avoiding the uterine vessels.? Clear amniotic fluid was encountered.? The baby was delivered in cephalic presentation atraumatically.? Tight nuchal cord x two noted and reduced.? The baby was suctioned, the cord was clamped and cut and the baby was handed to pediatric staff.? A segment of cord was obtained for cord gas, cord blood was obtained.? The placenta was manually removed intact.? Approximately 30% abruption was noted.? The uterine cavity was bluntly curetted with wet laps.? The uterine incision was then closed with a continuous interlocking stitch of O-chromic.? Adequate hemostasis was seen. Inspection of the uterine incision again showed good hemostasis.? The fascia was then closed with a continuous stitch of O-Vicryl.? The subcutaneous tissue was irrigated and inspected for hemostasis.? The skin was then closed with Insorb marlin. Postoperative condition:? stable EBL: ? 700? cc Complications: ? none Sponge and instruments counts correct x two
[2023-06-14] MEDS: ketorolac 30 mg/mL INJ IVP ×2 (11:15→17:38)
--- NOTE | 2023-06-14 14:59 | PC.NURSE ---
Epidural catheter removed by Kristal Tripathi CRNA
[2023-06-14] MEDS: docusate sodium 100 mg Capsule PO (17:38)
[2023-06-14 20:08] LABS: Hematocrit 29.1 % (36-47); Mean Corpuscular HGB Conc 34.4 g/dL (30-55); Mean Corpuscular Hemoglobin 30.8 pg (27-33); Mean Corpuscular Volume 89.5 fl (85-98); Mean Platelet Volume 9.5 fL (7.4-10.4); Platelet Count 194 10^3/cmm (157-399); Red Blood Count 3.25 10^6/uL (3.85-5.65); Red Cell Distribution Width 12.5 % (12.1-15.1); White Blood Count 14.63 10^3/uL (3.29-11.43)
[2023-06-15] MEDS: HYDROcodone-acetaminophen 5-325 mg Tablet PO (02:27)
[2023-06-15 03:30] VITALS: BP 104/53; PULSE 77; TEMP 36
[2023-06-15] MEDS: ibuprofen 800 mg tablet PO (08:49)
[2023-06-15] MEDS: PRENATAL VIT NO.130/IRON/FOLIC 1 EACH TABLET PO (08:49)
[2023-06-15] MEDS: docusate sodium 100 mg Capsule PO (08:50)
[2023-06-15 08:51] VITALS: BP 111/55; PULSE 75
[2023-06-15 11:24] VITALS: BP 136/84; PULSE 94; TEMP 35.7
[2023-06-15 11:55] VITALS: BP 136/84; PULSE 94; RESP 16; TEMP 36.6
--- NOTE | 2023-06-15 14:35 | P.PN_ITS ---
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: Interval history: no c/o eating, voiding, ambulating well no pain, bleeding patient wants to go home without any difficulties Labor: Station: -3 Amniotic Membrane Status: Ruptured Monitor Mode: External Contraction Pattern: Irregular Vitals/I&O/Wt Last Vital Signs Temp 98 F 06/15/23 11:55 Pulse 94 06/15/23 11:55 Resp 16 06/15/23 11:55 BP 136/84 06/15/23 11:55 Pulse Ox 96 06/14/23 08:25 O2 Del Method Room Air 06/14/23 08:25 Physical Exam 2 Narrative: comfortable afebrile, VS normal Abd: soft, nontender wound clean and dry Ext: normal Urinary Catheter Management: Ken Latex: Cath Placed During This Visit: yes, but has since been removed by the nurse Reason for Continuing Indwelling Catheter: Decision to DC Catheter Urinary Catheter Date of Insertion: 06/14/23 Urinary Catheter Time of Insertion: 04:51 Date Urinary Catheter Removed: 06/14/23 Time Urinary Catheter Discontinued: 19:20 Data 06/14/23 19:50 A&P Assessment and plan (1) S/P : POD #1 primary LTCS doing well patient wants to go home discharge to home today instructions and precautions given call/return if fever, chills, nausea, vomiting, headaches, abdominal pain, bleeding, inability to void, swelling, leg pain; feelings of depression or mood changes; wound redness, swelling, or discharge f/u in 1 week or PRN Attestations 2 Medical Necessity Statement*: patient s/p , plan to discharge to home today Coding Level of Care Code Acute Code for Chg Fwd Diagnoses S/P Z98.891 Time Spent (min) 20
--- NOTE | 2023-06-15 14:40 | P.DS_ITS ---
Discharge Providers NETWORK APPLICATIONS SPECIALIST Date of Admission: 06/13/23 19:28 Date of Discharge: 06/15/23 Attending Provider at Admission: Jarad Ceja MD Attending Provider at Discharge: Jarad Ceja MD Consults: none Primary NETWORK APPLICATIONS SPECIALIST: Jarad Ceja MD Primary Care Provider: MARICEL Baer Diagnoses at Discharge Discharge Diagnosis (1) S/P : Details from hospital stay: 23 y.o. h/o two previous vaginal deliveries at 39 w 1 d admitted for induction of labor cervix was at 5 cm when heart tracing showed repetitive late decelerations and moderately heavy vaginal bleeding with clots was noted patient diagnosed with placental abruption and nonreassuring heart tracing primary low-transverse was performed with delivery of vigorous patient and baby did well postoperatively patient wanted to go home on first postoperative day patient was discharged to home without any complications Status: Acute Reason for Visit Reason for Visit: INDUCTION OF LABOR Brief History: 23 y.o. h/o two previous vaginal deliveries at 39 w 1 d admitted for induction of labor Hospital Course Hospital Course 23 y.o. h/o two previous vaginal deliveries at 39 w 1 d admitted for induction of labor cervix was at 5 cm when heart tracing showed repetitive late decelerations and moderately heavy vaginal bleeding with clots was noted patient diagnosed with placental abruption and nonreassuring heart tracing primary low-transverse was performed with delivery of vigorous infant patient and baby did well postoperatively patient wanted to go home on first postoperative day patient was discharged to home without any complications Information Peripartum Data: Infant Delivery Method: complications: none Physical Exam Narrative: comfortable afebrile, VS normal Abd: soft, nontender wound clean and dry Ext: normal Urinary Catheter Management: Ken Latex: Cath Placed During This Visit: yes, but has since been removed by the nurse Reason for Continuing Indwelling Catheter: Decision to DC Catheter Urinary Catheter Date of Insertion: 06/14/23 Urinary Catheter Time of Insertion: 04:51 Date Urinary Catheter Removed: 06/14/23 Time Urinary Catheter Discontinued: 19:20 History History History 3 Term 2 0 Miscarriages/Ectopic 0 Living Children 2 Discharge Data Studies Completed and Pending Laboratory Results WBC 14.63 10^3/uL (3.29-11.43) H 06/14/23 19:50 RBC 3.25 10^6/uL (3.85-5.65) L 06/14/23 19:50 Hgb 10.00 g/dL (11.27-16.99) L 06/14/23 19:50 Hct 29.1 % (36-47) L 06/14/23 19:50 MCV 89.5 fl (85-98) 06/14/23 19:50 MCH 30.8 pg (27-33) 06/14/23 19:50 MCHC 34.4 g/dL (30-55) 06/14/23 19:50 RDW 12.5 % (12.1-15.1) 06/14/23 19:50 Plt Count 194 10^3/cmm (157-399) 06/14/23 19:50 MPV 9.5 fL (7.4-10.4) 06/14/23 19:50 Neut % (Auto) 65.4 % 06/13/23 20:16 Lymph % (Auto) 25.1 % 06/13/23 20:16 Stephenson % (Auto) 5.5 % 06/13/23 20:16 Eos % (Auto) 2.0 % 06/13/23 20:16 Baso % (Auto) 0.7 % 06/13/23 20:16 Neut # (Auto) 8.77 10^3/uL (1.8-7.7) H 06/13/23 20:16 Lymph # (Auto) 3.4 10^3/uL (0.8-4.8) 06/13/23 20:16 Stephenson # (Auto) 0.7 10^3/uL (0.2-0.9) 06/13/23 20:16 Eos # (Auto) 0.3 10^3/uL (0.0-0.8) 06/13/23 20:16 Baso # (Auto) 0.1 10^3/uL (0.0-0.1) 06/13/23 20:16 Nucleated RBC % (auto) 0 % 06/13/23 20:16 Nucleated RBCs # 0.0 /100WBC 06/13/23 20:16 Blood Type A Positive 06/13/23 20:16 Rho(D) Type Rh positive 06/13/23 20:16 Antibody Screen Negative 06/13/23 20:16 Procedures Performed induction of labor primary low-transverse Vitals Last Vital Signs Temp 98 F 06/15/23 11:55 Pulse 94 06/15/23 11:55 Resp 16 06/15/23 11:55 BP 136/84 06/15/23 11:55 Pulse Ox 96 06/14/23 08:25 O2 Del Method Room Air 06/14/23 08:25 Results Labs OB ([facility]): Obstetrics US 04/14/23 Obstetrics US/Biophysical Profile Blood Type A Positive 06/13/23 Antibody Screen Negative 06/13/23 Hct 29.1 % (36-47) L 06/14/23 Hgb 10.00 g/dL (11.27-16.99) L 06/14/23 Rho(D) Type Rh positive 06/13/23 Plt Count 194 10^3/cmm (157-399) 06/14/23 Hep Bs Antigen Non-reactive (Nonreactive) 01/03/23 Hepatitis C Antibody Non-reactive (Nonreactive) 01/03/23 Rubella IgG Antibody 173.8 IU/mL (0.0-10.0) H 01/03/23 RPR Nonreactive (Nonreactive) 01/03/23 HIV 1&2 Ab & HIV 1 Ag Non-reactive (Non-Reactiv) 01/03/23 TSH 1.21 uIU/mL (0.27-4.20) 01/03/23 C.trachomatis RNA (TMA) Not detected (NOT DETECTED) N.gonorrhoeae RNA (TMA) Not detected (NOT DETECTED) Chlamydia/GC Comment See note 01/03/23 Gest Glucose Tolerance 73 mg/dL (70-139) 03/28/23 Ser , Semi-Qnt 0.50 mIU/mL 11/14/20 Urine Opiates Screen Negative ng/mL (Negative) 01/03/23 Ur Barbiturates Screen Negative ng/mL (Negative) 01/03/23 Ur Phencyclidine Scrn Negative ng/mL (Negative) 01/03/23 Ur Amphetamines Screen Negative ng/mL (Negative) 01/03/23 U Benzodiazepines Scrn Negative ng/mL (Negative) 01/03/23 Urine Cocaine Screen Negative ng/mL (Negative) 01/03/23 U Marijuana (THC) Screen Negative ng/mL (Negative) 01/03/23 Micro Urine Specimen 01/03/23 Discharge Plan Discharge Patient Disposition: Home Condition: Stable Prescriptions: New oxycodone-acetaminophen [Percocet] 5-325 mg tablet 1 tab PO BID PRN (Reason: pain) Qty: 14 0RF ferrous sulfate 325 mg (65 mg iron) tablet 325 mg PO DAILY Qty: 30 5RF Discharge Orders: Discharge Order (Routine); Ordered 06/15/23 Ordered By: Jarad Ceja Referrals: Jarad Ceja MD [Physician] - (follow up appointment with Dr. Ceja on 06/29/23 @1:15pm. ) Discharge Diet: Usual diet Discharge Activity: Increase activity as tolerated Patient Instructions: Depression (DC), Bleeding (DC), Preeclampsia and Eclampsia After Delivery (GEN), Hemorrhage (DC), OB [facility], OB Discharge Report, OB Food/Drug Interaction Guide, Opioid Safety, OB Home Care, OB Proud Parent Packet Discharge Attestations NETWORK APPLICATIONS SPECIALIST Time Spent in Discharge Care*: less than 30 min Coding Level of Care Code Acute Code for Chg Fwd Diagnoses S/P Z98.891 Time Spent (min) 20
== END 2023-06-15 11:55 | disposition home or self-care (01) | DRG 788 ==
LOC: OPOB 19:28 → OBGYN 19:28
PROVIDERS: Admitting Provider Obstetrics & Gynecology; PCP Nurse Practitioner Family; Visit Provider Obstetrics & Gynecology
PROC: 10D00Z1 Extraction of Products of Conception, Low, Open Approach (ICD-10-PCS; CPT 59514; principal; 2023-06-14 06:05)
DX: O45.93 Premature separation of placenta, unspecified, third trimester (principal); O69.81X0 Labor and delivery complicated by cord around neck, without compression, not applicable or unspecified; O76 Abnormality in fetal heart rate and rhythm complicating labor and delivery; Z3A.39 39 weeks gestation of pregnancy; Z37.0 Single live birth
CPT/HCPCS: 36415; 51702; 59025; 59409; 84315; 85025; 85027; 86850; 86900; 96374; J0690; J1885; J2274; J2405; J2590; J2795; J3490; J7030; J7120; J7121

== ENCOUNTER 2023-06-16 08:10 | Emergency (ER) | payer BC, MEDICAID, SELFPAY ==
[2023-06-16 08:15] VITALS: BP 121/80; PULSE 84; RESP 18; TEMP 36.8; O2SAT 100
--- NOTE | 2023-06-16 08:24 | ED_ITS ---
HPI - Headache General: Chief Complaint: Headache Stated Complaint: headache post Time Seen by Provider: 06/16/23 08:14 Source: patient Mode of arrival: ambulatory Limitations: no limitations History of Present Illness: 23-year-old female states she had epidur al for on the seventh she states starting yesterday she has been having a severe headache she states its much worse with standing improved with laying flat she denies any fevers had some nausea. Associated symptoms: Deny chest pain, fever(s), nausea, rash or vomiting Review of Systems Const: Denies: fever(s), chills, body aches or change in appetite Eyes: Denies: blurry vision or eye discomfort ENMT: Denies: throat pain or dental pain Card: Denies: chest pain Resp: Denies: dyspnea GI: Denies: abdominal pain, nausea, vomiting or diarrhea Musc: Denies: neck pain or back pain Skin/Breast: Denies: rash Neuro: Reports: headache(s) [facility], [facility] ED PFSH: Medical History (Updated 06/16/23 @ 09:54 by Vikash Raphael MD) Encounter for induction of labor Asthma Surgical History No history of previous surgery Family History Sister Hypertension Mother Hypertension Heart disease Thyroid disease Breast cancer Pt unsure of age of diagnosis Lupus (systemic lupus erythematosus) Social History Smoking and tobacco/nicotine status: current every day tobacco/nicotine user Second hand smoke exposure: No Alcohol intake: never Substance/Drug Use: never Lives independently: Yes Marital status: Physical Exam Const: COMMON NORMALS: no acute distress, patient oriented x3 and healthy appearing HENMT: COMMON NORMALS: normocephalic and atraumatic HEAD & SCALP: normocephalic and atraumatic Eye: COMMON NORMALS: Equal, round and reactive pupils present and EOMs intact bilaterally PUPIL: Yes Equal, round and reactive pupils present Neck/C-Spine: COMMON NORMALS: full ROM and supple Chest: COMMONS NORMALS: normal inspection of the chest Resp: COMMON NORMALS: normal respiratory effort Cardio: COMMON NORMALS: regular rate RATE: regular rate Extremity: COMMON NORMALS: normal to inspection and full ROM Neuro: COMMON NORMALS: patient oriented x3, moves all extremities and no focal motor deficits Psych: COMMON NORMALS: mental status grossly normal, Normal thought process present and cooperative THOUGHT PROCESS: Normal thought process present Skin: COMMON NORMALS: no rashes or lesions noted and no wounds GENERAL SKIN EXAM: no rashes or lesions noted Course Vital Signs: Vital signs: Vital Signs Temperature 98.2 F 06/16/23 08:15 Pulse Rate 84 06/16/23 08:15 Respiratory Rate 18 06/16/23 08:15 Blood Pressure 121/80 06/16/23 08:15 Pulse Oximetry 100 06/16/23 08:15 Oxygen Delivery Me thod Room Air 06/16/23 08:15 MDM - Headache Medical Decision Making Patient presents here with a headache is likely postdural headache anesthesia did offer blood patch here she refused she got IV medicines here headache has resolved she has no signs of bleed or meningitis she is follow-up with PCP and return if worsening. Medical Records I reviewed the patient's medical records. No radiology studies performed this visit Discharge Plan Discharge Patient Disposition: Home Clinical Impression: Headache Condition: Stable Prescriptions: No Action oxycodone-acetaminophen [Percocet] 5-325 mg tablet 1 tab PO BID PRN (Reason: pain) Qty: 14 0RF ferrous sulfate 325 mg (65 mg iron) tablet 325 mg PO DAILY Qty: 30 5RF Discharge Orders: Discharge ED (Routine); Ordered 06/16/23 Ordered By: Vikash Raphael Referrals: Lolita Sheffield FNP [Primary Care Provider] - 1-3 days Discharge Diet: Advance as tolerated Discharge Activity: Resume usual activity Patient Instructions: General Headache (ED) Coding 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
[2023-06-16] MEDS: ketorolac 30 mg/mL INJ 15 MG IVP (08:35)
[2023-06-16] MEDS: diphenhydrAMINE 50 mg/mL SDV 1mL IVP (08:36)
[2023-06-16] MEDS: metoclopramide 5 mg/mL SDV 2 mL 10 MG IVP (08:36)
[2023-06-16] MEDS: sodium chloride 0.9% 1,000 ML 999 ML IV (08:38)
[2023-06-16] MEDS: acetaminophen 1,000 MG/100 ML PIGGYBACK 400 MG IV (09:18)
[2023-06-16] MEDS: SODIUM CHLORIDE 0.9% IV (09:31)
[2023-06-16] MEDS: AMINOPHYLLINE IV (09:31)
--- NOTE | 2023-06-16 10:33 | P.ANESASSM_ITS ---
Pre-Anesthetic Assessment Height/Weight: Height 1.6 m Temp Pulse Resp BP Pulse Ox O2 Del Method 98.2 F 84 18 121/80 100 Room Air 06/16/23 08:15 06/16/23 08:15 06/16/23 08:15 06/16/23 08:15 06/16/23 08:15 06/16/23 08:15 epidural blood patch Exam alert, oriented x 3, clear to auscultation bilaterally and regular rate & rhythm Other Pertinent Information Patient presents with classic s/s of PDPH. Offered multiple treatment suggestions and informed her laying flat will make symptoms go away until resolution of headache. Patient wanted blood patch at first, but then decided to try IV meds first. Patient was give fluid bolus, benadryl 50 mg, reglan 10 mg, toradol 15 mg, acetaminophen 1,000 mg, and aminophylline 250 mg IV. She declined oxycodone. With those interventions, patient reported headache went from 10 to a 2 and was discharged before I was able to re-assess the patient. Medications/Allergies Home Medications Medication Instructions Recorded Confirmed Last Taken Type ferrous sulfate 325 mg (65 mg 325 mg PO DAILY #30 tabs 06/15/23 06/16/23 06/15/23 Rx iron) tablet oxycodone-acetaminophen 5 mg-325 1 tab PO BID PRN pain #14 tabs 06/15/23 06/16/23 06/15/23 Rx mg tablet (Percocet) Allergies Allergy/AdvReac Type Severity Reaction Status Date / Time No Known Allergies Allergy Verified 06/13/23 20:35 [facility] Anesthesia Medical History (Updated 06/16/23 @ 09:54 by Vikash Raphael MD) Encounter for induction of labor Asthma Surgical History No history of previous surgery Family History Sister Hypertension Mother Hypertension Heart disease Thyroid disease Breast cancer Pt unsure of age of diagnosis Lupus (systemic lupus erythematosus) Social History Smoking and tobacco/nicotine status: current every day tobacco/nicotine user Second hand smoke exposure: No Alcohol intake: never Substance/Drug Use: never Lives independently: Yes Marital status: Data Anesthesia Cardiac Studies: No Data to Display
--- NOTE | 2023-06-17 13:03 | ANE.PACU2 ---
Inpatient post-anesthesia follow up: Airway intact: Yes Vital signs: Temperature 98.2 F Pulse Rate 84 Respiratory Rate 18 Blood Pressure 121/80 Pulse Oximetry 100 Oxygen Delivery Me thod Room Air Oxygen Flow Rate Fraction of Inspir ed Oxygen Hydration adequate: Yes Nausea and vomiting: No Pain level: 1 Mental status: Baseline Epidural Start/End: Epidural Start Date: 06/14/23 Epidural Start Time: 03:52 Epidural End Date: 06/14/23 Epidural End Time: 07:15
== END 2023-06-16 10:19 | disposition home or self-care (01) ==
PROVIDERS: Emergency Provider Emergency Medicine; PCP Nurse Practitioner Family
DX: R51.9 Headache, unspecified (principal); Z72.0 Tobacco use
CPT/HCPCS: 96361; 96374; 96375; 99284; J0131; J1200; J1885; J2765; J7030

== ENCOUNTER 2023-06-17 22:06 | Emergency (ER) | payer BC, MEDICAID, SELFPAY ==
[2023-06-17 22:34] VITALS: BP 140/87; PULSE 71; RESP 18; TEMP 36.3; O2SAT 98
--- NOTE | 2023-06-17 23:26 | ED_ITS ---
HPI - Headache General: Chief Complaint: Headache Stated Complaint: Headace Time Seen by Provider: 06/17/23 23:24 Source: patient Mode of arrival: ambulatory Limitations: no limitations History of Present Illness: Patient is a 23-year-old female here with complaints of a postdural puncture headache. Patient states she had an epidural on 06/13 for a vaginal delivery that turned into a for placental abruption. Patient was seen here in the emergency department yesterday with complaints of a headache that was consistent with a PDPH. She was offered a blood patch at that time but declined. She was treated with IV fluids, Benadryl, Toradol, Tylenol, Reglan, and Aminophylline. States she felt better for a while after meds but headache came back and is severe. It is better with lying flat and worse with sitting up. She reports photophobia. MD elicited complaint: headache Onset (ago): day(s) Onset description: other (following epidural) Location: frontal and diffuse Severity: severe Pain scale (0-10): 10 Exacerbating factors: other (sitting upright ) Relieving factors: other (lying down) Context: recent spinal/epidural procedure Associated symptoms: Reports nausea and photophobia; Deny chest pain, fever(s), malaise, rash or vomiting Treatments prior to arrival: other (treated in ED yesterday with IV medications; worked for short amount of time) Review of Systems Const: Denies: fever(s), chills, body aches, fatigue or malaise Eyes: Reports: photophobia Card: Denies: chest pain Resp: Denies: dyspnea GI: Reports: nausea; Denies: abdominal pain or vomiting Skin/Breast: Denies: rash Neuro: Reports: headache(s); Denies: numbness in extremities, weakness in extremities, sensory changes or dizziness PFS ED PFSH: Medical History (Updated 06/17/23 @ 23:50 by DESTINEY Sandoval) Encounter for induction of labor Asthma Surgical History No history of previous surgery Family History Sister Hypertension Mother Hypertension Heart disease Thyroid disease Breast cancer Pt unsure of age of diagnosis Lupus (systemic lupus erythematosus) Social History Smoking and tobacco/nicotine status: current every day tobacco/nicotine user Second hand smoke exposure: No Alcohol intake: never Substance/Drug Use: never Lives independently: Yes Marital status: Physical Exam Const: COMMON NORMALS: no acute distress, average body habitus, patient oriented x3, no limitations, healthy appearing, alert and well nourished GENERAL APPEARANCE: cooperative ORIENTATION/CONSCIOUSNESS: Yes awake, Yes oriented to person, Yes oriented to place and Yes oriented to time HENMT: COMMON NORMALS: normocephalic and atraumatic HEAD & SCALP: normal to inspection, normocephalic and atraumatic FACE & SINUS: normal facial exam Eye: GENERAL EYE: appearance normal, both eyes and all related structures and normal light reflex DIRECT OPHTHALMOSCOPY: Yes normal light reflex and Yes photophobia Neck/C-Spine: COMMON NORMALS: full ROM, no lymphadenopathy and no meningeal signs GENERAL: Yes normal visual inspection Resp: COMMON NORMALS: normal respiratory effort and clear to auscultation bilaterally AUSCULTATION: clear to auscultation bilaterally Cardio: COMMON NORMALS: regular rate and regular rhythm RATE: regular rate RHYTHM: regular rhythm Neuro: HARRY COMA SCALE: document GCS findings Harry coma scale eye o pening: Spontaneous Harry coma scale verbal response: Orientated Harry coma scale motor response: Obey commands Carson coma scale total score: 15 COMMON NORMALS: patient oriented x3 SENSORIUM/ORIENTATION: Yes alert, Yes oriented to person, Yes oriented to place and Yes oriented to time MENINGEAL SIGNS: Yes no meningeal signs Skin: COMMON NORMALS: no rashes or lesions noted GENERAL SKIN EXAM: no rashes or lesions noted Course Consultations: Consultation #1: Dr. Constantino, anesthesia-will come perform blood patch Vital Signs: Vital signs: Vital Signs Temperature 97.3 F L 06/17/23 22:34 Pulse Rate 71 06/17/23 22:34 Respiratory Rate 18 06/17/23 22:34 Blood Pressure 140/87 06/17/23 22:34 Pulse Oximetry 98 06/17/23 22:34 Oxygen Delivery Me thod Room Air 06/17/23 22:34 MDM - Headache Medical Decision Making Dr. Constantino came and provided blood patch for patient. She was given IV Tylenol at Dr. Constantino's request. Patient continued to be monitored here in the ED and continued to lie flat following procedure at anesthesia's recommendations. Per anesthesia, she is cleared for discharge at 0121. Medical Records I reviewed the patient's medical records. 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
--- NOTE | 2023-06-18 00:30 | ANES.PROC ---
Anesthesia Procedures Procedure/Date: 06/18/23 Epidural: Time Out Performed: Yes Consents Signed: Procedure Consent Consent: from patient Lumbar Level: L3-L4 Epidural position: sitting Epidural procedure: sterile prep of area, 1% lidocaine to numb the area and 18 g needle Additional Comments: Patient requesting definitive treatment for PDPH with epidural blood patch after previous therapy wore off. With assistance of nursing staff, 20 cc of blood was drawn sterilely from L arm and injected into the epidural space via tuohy after JERROD to saline. Patient reported her headache immediately resolved, but still complained of neck soreness/stiffness. Verbal order for tylenol for muscle tension and to lay flat for 1 hr to allow proper clotting injected blood.
[2023-06-18 02:04] VITALS: BP 114/76; PULSE 71; O2SAT 99
--- NOTE | 2023-06-18 02:08 | PC.NURSE ---
Consent for blood patch witnessed by this nurse, performed by Dr Swenson.
== END 2023-06-18 01:53 | disposition home or self-care (01) ==
PROVIDERS: Emergency Provider Physician Assistant; PCP Nurse Practitioner Family
DX: O89.4 Spinal and epidural anesthesia-induced headache during the puerperium (principal); Z72.0 Tobacco use
CPT/HCPCS: 99283

== ENCOUNTER → 2024-02-06 09:45 | Outpatient (BNVA) | payer BC, MEDICAID, SELFPAY | PROVIDERS: PCP Nurse Practitioner Family; Visit Provider Nurse Practitioner Family | DX: M25.50 Pain in unspecified joint (principal) | CPT/HCPCS: 80053; 80061; 82306; 82607; 83735; 84443; 84550; 85025; 85651; 86140; 86160; 86162; 86200; 86235; 86255; 86376; 86431 ==

== ENCOUNTER 2024-04-14 09:36 | Emergency (ER) | payer BC, MEDICAID, SELFPAY ==
[2024-04-14 10:22] VITALS: BP 121/78; PULSE 66; RESP 16; TEMP 36.6; O2SAT 99; BMI 35.4
[2024-04-14 11:25] VITALS: BP 132/68; PULSE 68; O2SAT 100
--- NOTE | 2024-04-14 11:39 | ED_ITS ---
HPI - URI/Sore Throat General: Chief Complaint: Headache Stated Complaint: congestion, headache Time Seen by Provider: 04/14/24 11:29 History of Present Illness: This patient is a 24-year-old white female who presents to the emergency department complaining of fever, cough, congestion mild sore throat. Symptoms started yesterday. She has not had any nausea, vomiting or diarrhea. No urinary symptoms. Associated symptoms: Reports fever(s) and nasal congestion Related Data Home Medications ?Medication ?Instructions ?Recorded ?Confirmed levonorgestrel (Mirena) intrauterine 09/14/23 Previous Rx's ?Medication ?Instructions ?Recorded amitriptyline 10 mg tablet 10 mg PO .qhs #30 tabs 01/09 triamcinolone acetonide 0.1 % 1 applic topical BID 14 days #80 02/06/24 topical cream grams rizatriptan 10 mg tablet (Maxalt) See Rx Instructions PO .COMPLEX 03/23/24 PRN migraine headache #8 tabs Allergies Allergy/AdvReac Type Severity Reaction Status Date / Time No Known Allergies Allergy Verified 04/14/24 10:29 Review of Systems General: Reports: 10 or more systems reviewed and unremarkable except in HPI and below Const: Reports: fever(s) ENMT: Reports: throat pain, nasal discharge and nasal congestion Resp: Reports: non-productive cough [facility] ED PFSH: Medical History Encounter for induction of labor Asthma Surgical History S/P No history of previous surgery Family History Sister Hypertension Mother Hypertension Heart disease Thyroid disease Breast cancer Pt unsure of age of diagnosis Lupus (systemic lupus erythematosus) Social History Smoking and tobacco/nicotine status: never used tobacco/nicotine Physical Exam Const: COMMON NORMALS: no acute distress, patient oriented x3 and no limitations GENERAL APPEARANCE: cooperative and comfortable HENMT: COMMON NORMALS: normocephalic, atraumatic, moist oral mucous membranes and oropharynx normal HEAD & SCALP: normal to inspection, normocephalic and atraumatic FACE & SINUS: normal facial exam NOSE: Nasal discharge present THROAT: posterior oropharynx normal Eye: COMMON NORMALS: Equal, round and reactive pupils present, EOMs intact bilaterally and conjunctivae normal GENERAL EYE: appearance normal, both eyes and all related structures CONJUNCTIVA: Yes conjunctivae normal PUPIL: Yes Equal, round and reactive pupils present Neck/C-Spine: COMMON NORMALS: supple and no JVD Chest: COMMONS NORMALS: normal inspection of the chest Resp: COMMON NORMALS: normal respiratory effort and clear to auscultation bilaterally AUSCULTATION: clear to auscultation bilaterally Cardio: COMMON NORMALS: no JVD, regular rate, regular rhythm, No gallops present (Cardio), No murmurs present (Cardio) and No rub (Cardio) RATE: regular rate RHYTHM: regular rhythm GI: COMMON NORMALS: Normal to inspection, nondistended, normoactive bowel sounds present, Soft to palpation and non-tender AUSCULTATION: Yes normoactive bowel sounds PALPATION: Yes Soft to palpation : COMMON NORMALS: Yes no CVA tenderness BLADDER/KIDNEY EXAM: Yes no CVA tenderness Back/Pelvis: COMMON NORMALS: no CVA tenderness and thoracic and lumbar spine normal to inspection Extremity: COMMON NORMALS: normal to inspection Neuro: COMMON NORMALS: patient oriented x3 and CN's II-XII intact bilaterally Psych: COMMON NORMALS: mental status grossly normal, Normal thought process present and cooperative THOUGHT PROCESS: Normal thought process present Skin: COMMON NORMALS: no rashes or lesions noted, turgor normal and no jaundice GENERAL SKIN EXAM: no rashes or lesions noted and turgor normal Course Vital Signs: Vital signs: Vital Signs Temperature 97.9 F 04/14/24 10:22 Pulse Rate 68 04/14/24 11:25 Respiratory Rate 16 04/14/24 10:22 Blood Pressure 132/68 04/14/24 11:25 Pulse Oximetry 100 04/14/24 11:25 Oxygen Delivery Me thod Room Air 04/14/24 11:25 MDM - URI/Sore Throat Medical Decision Making Patient appears to have a viral upper respiratory infection. Recommended she take Robitussin DM for the cough. Tylenol and/or Motrin for fever, aches and pains. Other [id number] decongestants. Push fluids and get some rest. Follow-up with primary care physician in 10 days if not resolved. She was discharged in stable condition. No radiology studies performed this visit Discharge Plan Discharge Patient Disposition: Home Clinical Impression: URI (upper respiratory infection) Qualifiers: URI type: unspecified viral URI Qualified Code(s): J06.9 - Acute upper respiratory infection, unspecified Condition: Stable Prescriptions: No Action Mirena 21 mcg/24 hr (8 yrs) 52 mg intrauterine device intrauterine amitriptyline 10 mg tablet 10 mg PO .qhs Qty: 30 2RF triamcinolone acetonide 0.1 % cream 1 applic topical BID 14 Days Qty: 80 0RF rizatriptan [Maxalt] 10 mg tablet See Rx Instructions PO .COMPLEX PRN (Reason: migraine headache) Qty: 8 5RF Rx Instructions: take 1 tab at onset of headache; if no relief may repeat 1 tab after at least 2 hrs; max = 3 tabs/24 hr orally PRN; Discharge Orders: Discharge ED (Routine); Ordered 04/14/24 Ordered By: Armand Daly Referrals: Lolita Sheffield FNP [Primary Care Provider] - Patient Instructions: Upper Respiratory Infection (DC) Activity Restrictions/Additional Instructions: Take [id number] cough and cold medications. Follow-up with your primary care physician in 10 days if this has not resolved. 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
[2024-04-14 11:56] VITALS: BP 108/65; PULSE 77; O2SAT 98
== END 2024-04-14 11:57 | disposition home or self-care (01) ==
PROVIDERS: Emergency Provider Emergency Medicine; Family Provider Nurse Practitioner Family; PCP Nurse Practitioner Family
DX: J06.9 Acute upper respiratory infection, unspecified (principal)
CPT/HCPCS: 99282

== ENCOUNTER 2024-08-28 12:57 | Outpatient (CLI) | payer BC, MEDICAID, SELFPAY ==
--- NOTE | 2024-08-28 13:45 | MR_ITS ---
WS: [id number] MRI RIGHT KNEE NONCONTRAST TECHNIQUE: Axial PD, coronal PD fat sat, coronal PD, sagittal PD, and sagittal PD fat-sat images obtained. CLINICAL INFORMATION: M25.561 - Pain in right knee COMPARISON: 2021 FINDINGS: Distal quadriceps and patella tendons are intact. Evidence of recent patellar dislocation with bony contusion involving the medial patella and lateral femoral condyle. Partial tear of the medial patellar retinaculum at the insertion. ACL and PCL appear intact. Normal fibular head. Normal popliteal fossa. Mild chondromalacia patella. Mild chondromalacia involving the medial joint compartment. No subchondral edema. Medial and lateral collateral ligaments appear intact. MR/MR knee RT wo con* [id number] IMPRESSION: 1. Evidence of recent patellar dislocation with diffuse bony contusion involvi ng the patella and lateral femoral condyle. 2. Partial tear involving the medial patellar retinaculum at the insertion. Sm all associated impaction fracture involving the medial patella. 3. Mild chondromalacia patella. 4. No other acute findings. Outbridge grading: grade II: blister-like swelling/fraying of articular cartila ge extending to surface
== END 2024-08-28 12:58 | disposition home or self-care (01) ==
LOC: RAD 13:01
PROVIDERS: PCP Nurse Practitioner Family; Visit Provider Nurse Practitioner Family
DX: S83.8X1A Sprain of other specified parts of right knee, initial encounter (principal); M22.41 Chondromalacia patellae, right knee; S82.091A Other fracture of right patella, initial encounter for closed fracture; X58.XXXA Exposure to other specified factors, initial encounter
CPT/HCPCS: 73721

== ENCOUNTER → 2024-10-01 11:05 | Outpatient (BNVA) | payer BC, MEDICAID, SELFPAY | PROVIDERS: PCP Nurse Practitioner Family; Visit Provider Nurse Practitioner Family | DX: Z30.431 Encounter for routine checking of intrauterine contraceptive device (principal) | CPT/HCPCS: 81025 ==

== ENCOUNTER → 2024-12-18 13:20 | Outpatient (BNVA) | payer BC, MEDICAID, SELFPAY | PROVIDERS: PCP Nurse Practitioner Family; Visit Provider Nurse Practitioner Family | DX: Z30.09 Encounter for other general counseling and advice on contraception (principal) | CPT/HCPCS: 81025 ==

== ENCOUNTER → 2024-12-26 11:40 | Outpatient (BNVA) | payer BC, MEDICAID, SELFPAY | PROVIDERS: PCP Nurse Practitioner Family; Visit Provider Nurse Practitioner Family | DX: J02.9 Acute pharyngitis, unspecified (principal) | CPT/HCPCS: 87071; 87880 ==